=== PATIENT | male | born 1945 | race Caucasian/White ===

== ENCOUNTER 2018-01-12 22:56 | Emergency (ER) | payer MEDICARE, OTHER ==
[~2018-01-12] VITALS: Ht 182.9 cm; Wt 89.8 kg
[2018-01-13] MEDS ORDERED: METHYLPREDNISOLONE SOD SUCC 125 MG/2ML VIAL IV ONE (00:45)
[2018-01-13] MEDS ORDERED: DIPHENHYDRAMINE HCL INJ 50 MG/ML VIAL IV ONE (00:45)
[2018-01-13] MEDS ORDERED: CLINDAMYCIN 600MG/D5W 50ML 50 ML IV ONE (01:15)
[2018-01-13 02:35] VITALS: BP 140/84
== END 2018-01-13 02:50 | disposition home or self-care (01) ==
LOC: FSED 22:56
DX: T78.40XA Allergy, unspecified, initial encounter (principal); R22.9 Localized swelling, mass and lump, unspecified
CPT/HCPCS: 99283; J1200

== ENCOUNTER 2018-09-09 14:36 | Emergency (ER) | payer MEDICARE, OTHER ==
[~2018-09-09] VITALS: Ht 182.9 cm; Wt 95.3 kg
[2018-09-09 15:58] VITALS: BP 123/86
== END 2018-09-09 15:59 | disposition home or self-care (01) ==
LOC: FSED 14:36
DX: J01.00 Acute maxillary sinusitis, unspecified (principal); J01.10 Acute frontal sinusitis, unspecified; J00 Acute nasopharyngitis [common cold]; J45.30 Mild persistent asthma, uncomplicated; I10 Essential (primary) hypertension; E78.5 Hyperlipidemia, unspecified
CPT/HCPCS: 99283